=== PATIENT | female | born 1955 | race Caucasian/White ===

== ENCOUNTER 2018-02-03 14:19 | Day surgery (SDC) | payer OTHER ==
[~2018-02-03 14:19] MED LIST: CEFAZOLIN 1 GM INJ; DEXAMETHASONE 4 MG/ML 1 ML INJ; LIDOCAINE 2% (SDV) 5 ML INJ; ONDANSETRON 4 MG INJ
[2018-02-03] MEDS ORDERED: MIDAZOLAM 1 MG/ML 2 ML INJ (18:11)
[2018-02-03] MEDS ORDERED: FENTAnyl 50 MCG/ML VIAL ×2 (18:11→19:04)
[2018-02-03] MEDS ORDERED: PROPOFOL 20 ML (18:12)
[2018-02-03] MEDS ORDERED: METOCLOPRAMIDE 10 MG INJ (18:13)
[2018-02-03] MEDS ORDERED: morphine 2 MG INJ IV (18:30)
[2018-02-03] MEDS: LIDOCAINE 1% (MPF) 30 ML INJ (18:54)
[2018-02-03] MEDS: ROPIVACAINE 0.5 % 30 ML VIAL (18:54)
[2018-02-03] MEDS: morphine SULFATE/PF (10 MG/10 ML) INJ (18:55)
[2018-02-03] MEDS ORDERED: ACETAMINOPHEN 1000MG/100ML IV 100 ML (19:21)
[2018-02-03] MEDS ORDERED: hydrALAzine 20 MG INJ IV (20:00)
[2018-02-03] MEDS ORDERED: HYDROmorphONE 1 MG/5 ML IV SYRINGE IV (20:00)
[2018-02-03] MEDS ORDERED: MEPERIDINE 25 MG INJ IV (20:00)
[2018-02-03] MEDS ORDERED: LABETALOL HCL 20MG INJ IV (20:00)
[2018-02-03] MEDS ORDERED: KETOROLAC 30 MG INJ IV (20:00)
[2018-02-03] MEDS ORDERED: DIPHENHYDRAMINE 50 MG INJ IV (20:00)
[2018-02-03] MEDS ORDERED: FENTAnyl 50 MCG/ML VIAL IV ×2 (20:00)
[2018-02-03] MEDS: HYDROmorphONE 1 MG/5 ML IV SYRINGE IV (20:21)
[2018-02-03] MEDS: ONDANSETRON 4 MG INJ IV (20:53)
== END 2018-02-03 21:06 | disposition home or self-care (01) ==
LOC: SDS 14:19
DX: M23.251 Derangement of posterior horn of lateral meniscus due to old tear or injury, right knee (principal); M22.41 Chondromalacia patellae, right knee; M23.221 Derangement of posterior horn of medial meniscus due to old tear or injury, right knee; M23.41 Loose body in knee, right knee
CPT/HCPCS: 29880; 82306